=== PATIENT | female | born 1995 | race Caucasian/White ===

== ENCOUNTER 2020-11-22 08:41 | Emergency (ER) | payer OTHER, SELFPAY ==
--- NOTE | ~2020-11-22 | CT_ITS ---
EXAMINATION: CT ABDOMEN AND PELVIS WITHOUT CONTRAST CLINICAL INFORMATION: Right lower quadrant/superior pubic pain COMPARISON: Previous pelvic ultrasound from earlier the same day TECHNIQUE: Multidetector volumetric imaging was performed from the superior aspect of the liver through the pubic symphysis. Sagittal and coronal reformatted images were obtained on the technologist's workstation. This CT examination was performed using dose optimization techniques as appropriate, variously including the following: *Automated exposure control *Adjustment of mA and/or kV according to patient size (this includes techniques or standardized protocols for targeted exams where dose is matched to indication/reason for exam; i.e. extremities or head) *Use of iterative reconstruction technique DLP: 432 mGy-cm FINDINGS: LUNG BASES: The visualized lung bases are unremarkable. LIVER, GALLBLADDER, AND BILIARY TREE: The liver is normal in size, shape, and attenuation. No focal hepatic lesion or biliary ductal dilatation is present. The gallbladder is unremarkable with no evidence of radiopaque gallstones, gallbladder wall thickening, or obvious pericholecystic inflammatory changes. PANCREAS: Unremarkable. SPLEEN: Unremarkable. ADRENAL GLANDS: Unremarkable. KIDNEYS AND URETERS: The kidneys are normal in size, shape, and attenuation. No hydronephrosis, hydroureter, or calculi seen. No perinephric stranding. BLADDER: Unremarkable. GASTROINTESTINAL TRACT: The small and large bowel are unremarkable. The appendix is unremarkable. ABDOMINAL WALL: No significant hernia is appreciated. LYMPH NODES: Normal. VASCULAR: Unremarkable. PELVIC VISCERA: Unremarkable. OSSEOUS STRUCTURES: There is a thoracolumbar scoliosis. CT/CT abdomen pelvis wo con IMPRESSION: Unremarkable exam.
--- NOTE | ~2020-11-22 | US_ITS ---
EXAMINATION: ULTRASOUND PELVIS OVARIAN DOPPLER. CLINICAL INFORMATION: Suprapubic pain. Rule out torsion COMPARISON: None TECHNIQUE: Transabdominal and transvaginal ultrasound of pelvis is performed. In addition pelvic Doppler was performed FINDINGS: The uterus is retroverted and retroflexed measuring 7.9 cm in length, 3.4 cm in AP and 4.4 cm in transverse dimension. It is homogeneous echotexture. The endometrial thickening measures 1.6 cm. There is trace fluid in the cervix. Right ovary measures 2.8 x 1.4 x 1.8 cm and volume 3.6 mL. There is multiple small follicles visualized. Left ovary measures 2.9 x 2.1 x 1.6 cm and volume 5.1 mL. There is anechoic corpus luteal cyst measuring 1.7 x 1.5 x 1.2 cm. There is no free fluid in cul-de-sac. On Doppler exam there is normal arterial and venous flow seen to both ovaries. US/US transvaginal IMPRESSION: Unremarkable uterus. Unremarkable ovaries except for small follicles in the right ovary and corpus luteal cyst left ovary. Normal arterial and venous Doppler study of the ovaries.
--- NOTE | ~2020-11-22 | US_ITS ---
EXAMINATION: ULTRASOUND PELVIS OVARIAN DOPPLER. CLINICAL INFORMATION: Suprapubic pain. Rule out torsion COMPARISON: None TECHNIQUE: Transabdominal and transvaginal ultrasound of pelvis is performed. In addition pelvic Doppler was performed FINDINGS: The uterus is retroverted and retroflexed measuring 7.9 cm in length, 3.4 cm in AP and 4.4 cm in transverse dimension. It is homogeneous echotexture. The endometrial thickening measures 1.6 cm. There is trace fluid in the cervix. Right ovary measures 2.8 x 1.4 x 1.8 cm and volume 3.6 mL. There is multiple small follicles visualized. Left ovary measures 2.9 x 2.1 x 1.6 cm and volume 5.1 mL. There is anechoic corpus luteal cyst measuring 1.7 x 1.5 x 1.2 cm. There is no free fluid in cul-de-sac. On Doppler exam there is normal arterial and venous flow seen to both ovaries. US/US pelvic ovarian doppler IMPRESSION: Unremarkable uterus. Unremarkable ovaries except for small follicles in the right ovary and corpus luteal cyst left ovary. Normal arterial and venous Doppler study of the ovaries.
--- NOTE | ~2020-11-22 | US_ITS ---
EXAMINATION: ULTRASOUND PELVIS OVARIAN DOPPLER. CLINICAL INFORMATION: Suprapubic pain. Rule out torsion COMPARISON: None TECHNIQUE: Transabdominal and transvaginal ultrasound of pelvis is performed. In addition pelvic Doppler was performed FINDINGS: The uterus is retroverted and retroflexed measuring 7.9 cm in length, 3.4 cm in AP and 4.4 cm in transverse dimension. It is homogeneous echotexture. The endometrial thickening measures 1.6 cm. There is trace fluid in the cervix. Right ovary measures 2.8 x 1.4 x 1.8 cm and volume 3.6 mL. There is multiple small follicles visualized. Left ovary measures 2.9 x 2.1 x 1.6 cm and volume 5.1 mL. There is anechoic corpus luteal cyst measuring 1.7 x 1.5 x 1.2 cm. There is no free fluid in cul-de-sac. On Doppler exam there is normal arterial and venous flow seen to both ovaries. US/US pelvic complete IMPRESSION: Unremarkable uterus. Unremarkable ovaries except for small follicles in the right ovary and corpus luteal cyst left ovary. Normal arterial and venous Doppler study of the ovaries.
[2020-11-22 08:51] VITALS: BP 121/70; PULSE 90; RESP 16; TEMP 36.8; O2SAT 98; BMI 23.0
--- NOTE | 2020-11-22 09:07 | ED_ITS ---
HPI - Abdominal Pain General Chief Complaint: Abdominal Pain Stated Complaint: ABD PAIN Time Seen by Provider: 11/22/20 08:59 Source: patient Mode of arrival: ambulatory History of Present Illness HPI narrative: 25-year-old female with a past medical history of asthma presenting to the ED complaining of lower abdominal pain/cramping since this morning with associated nausea. Reports pain radiates to back. Denies fever, chills, vomiting, diarrhea, dysuria/hematuria, vaginal bleeding, vaginal discharge. LMP last week. MD elicited complaint: abdominal pain Related Data Previous Rx's Medication Instructions Recorded ondansetron HCl [Zofran] 4 mg PO Q8H PRN #10 tab 11/22/20 Allergies Allergy/AdvReac Type Severity Reaction Status Date / Time doxycycline [DOXYCYCLINE] Allergy Unknown ANGIOEDEMA Verified 11/22/20 09:21 Review of Systems Review of Systems Constitutional: No Fever, No Chills Cardiovascular: No Chest Pain, No SOB Gastrointestinal: + Nausea, No Vomiting, No Diarrhea, No Constipation, + Abdominal pain Genitourinary: No irregular bleeding, No Dysuria, No Urinary Frequency, No Hematuria, No Flank Pain, No Urinary Flow Changes, No Hesitancy Musculoskeletal: No joint pain, No Myalgias, No Joint Swelling Skin: No Skin Lesions, No rash Yes all other systems are reviewed and are negative Physical Exam Vital Signs: Vital Signs: Last Vital Signs Temp 99.4 F 11/22/20 13:25 Pulse 92 11/22/20 13:25 Resp 16 11/22/20 13:25 BP 113/59 L 11/22/20 13:25 Pulse Ox 99 11/22/20 13:25 Body Mass Index 23.0 Const: General: cooperative, healthy appearing, comfortable and no acute distress Orientation/consciousness: patient oriented x3 Limitations: no limitations HENMT: Head: Yes normal to inspection Ears: hearing grossly normal bilater ally General nose exam: Normal external nose present Face and sinus: Yes normal facial exam Eyes: General: appearance normal, both eyes and all related structures EOM: EOMs intact bilaterally Neck: Neck: Yes normal visual inspection Resp: Effort & Inspection: normal respiratory effort Cardio: Rate: regular rate GI: Inspection: Yes normal to inspection Palpation (GI): Soft to palpation, Tenderness to palpation present (GI) suprapubicly (Greater on the right), no guarding and not rigid : General: Yes no CVA tenderness Back/Spine/Pelvis: Back: no CVA tenderness Skin: Rashes: no rashes Wounds: no wounds Neuro: General: patient oriented x3 Gait exam (Neuro): Normal gait present Extrem: General: Yes normal to inspection Course Course Course Narrative: -labs unremarkable. UA with blood (chronically), urine negative US pelvic complete IMPRESSION: Unremarkable uterus. Unremarkable ovaries except for small follicles in the right ovary and corpus luteal cyst left ovary. Normal arterial and venous Doppler study of the ovaries -1118--on re-evaluation patient reports mild symptomatic improvement however still very tender are on exam. Will obtain CT for further evaluation Patient unable to obtain CT scan with contrast due to anaphylaxis from a shellfish CT abdomen pelvis wo con IMPRESSION: Unremarkable exam. > results discussed with patient including worrisome signs and symptoms and very strict return precautions. She reports she has follow-up with her OBGYN next week. She was given printed copy of pelvic ultrasound results. She verbalized understanding and feels safe for discharge home MDM - Abdominal Pain MDM Narrative Medical decision making narrative: 25-year-old female with a past medical history of asthma presenting to the ED complaining of lower abdominal pain/cramping since this morning with associated nausea. On exam VSS, NAD/well- appearing, abdomen soft with suprapubic TTP >R, no rebound or guarding, no CVAT. Concern for ovarian cyst/torsion vs appendicitis vs ?TOA vs UTI. Lower concern for renal stone/pyelo/diverticulitis/cholecystitis/pancreatitis Plan: Labs, UA, CT AP, IVF, symptomatic treatment, reassess Medical Records Attestation: I reviewed the patient's medical records. Lab Data Attestation: I reviewed the patient's lab results. Result diagrams: 11/22/20 09:19 11/22/20 09:19 Labs: Lab Results 11/22/20 11/22/20 11/22/20 Range/Units 09:19 09:19 09:19 WBC 7.6 (4.8-10.8) X10*3/uL RBC 4.55 (4.20-5.50) X10*6/uL Hgb 12.6 (12.0-16.0) g/dl Hct 41.3 (37-47) % MCV 90.8 (80-98) fL MCH 27.7 (27.0-33.0) pg MCHC 30.5 L (31.0-35.0) g/dl RDW 13.6 (11.0-16.0) % Plt Count 288 (160-400) X10*3/uL MPV 10.0 (9.4-12.3) fL Immature Gran % (Auto) 0.1 (0.0-0.4) % Neut % (Auto) 65.4 (45-73) % Lymph % (Auto) 25.6 (20-40) % [place] % (Auto) 7.4 (2-11) % Eos % (Auto) 1.1 (0-4) % Baso % (Auto) 0.4 (0-2) % Lymph # (Auto) 1.9 (1.2-4.9) X10*3/uL [place] # (Auto) 0.6 (0.1-1.2) X10*3/uL Eos # (Auto) 0.1 (0.0-0.4) X10*3/uL Baso # (Auto) 0.0 (0.0-0.2) X10*3/uL Abs Immat Gran (auto) 0.01 (0.00-0.03) X10*3/uL Absolute Neuts (auto) 4.9 (2.0-8.3) X10*3/uL Absolute Nucleated RBC 0.000 (0.0-0.012) X10*3/uL Nucleated RBC % (auto) 0.0 (0.0-0.2) /100WBC Hold Blue Top SEE NOTE Sodium 142 (135-145) mmol/L Potassium 3.6 (3.3-5.1) mmol/L Chloride 103 (96-108) mmol/L Carbon Dioxide 30 H (22-29) mmol/L Anion Gap 13 (12-20) BUN 16 (9-16) mg/dL Creatinine 0.70 (0.5-1.4) mg/dL Estim Creat Clear Calc 100.7 Estimated GFR > 60 Random Glucose 108 (60-115) mg/dL Calcium 9.4 (8.4-10.2) mg/dL Magnesium 2.2 (1.6-2.6) mg/dL Total Bilirubin 0.9 (0.0-1.0) mg/dL Direct Bilirubin 0.3 (0.0-0.5) mg/dL AST 14 (5-31) U/L ALT 7 (0-31) U/L Alkaline Phosphatase 65 (39-117) U/L Total Protein 7.9 (6.5-8.0) g/dL Albumin 4.5 (3.5-5.0) g/dL Lipase 15 (8-78) U/L Urine Color Urine Appearance Urine pH (5.0-8.0) Ur Specific [place] (1.005-1.025) Urine Protein (NEG-TRACE) MG/DL Urine Glucose (UA) (NEG) MG/DL Urine Ketones (NEG) MG/DL Urine Blood (NEG) Urine Nitrite (NEG) Ur Leukocyte Esterase (NEG) Urine RBC (0) /HPF Urine WBC (0-4) /HPF Ur Squamous Epith Cells /LPF Urine Bacteria /LPF Urine Mucus /LPF Urine Test (NEGATIVE) 11/22/20 11/22/20 Range/Units 09:20 09:20 WBC (4.8-10.8) X10*3/uL RBC (4.20-5.50) X10*6/uL Hgb (12.0-16.0) g/dl Hct (37-47) % MCV (80-98) fL MCH (27.0-33.0) pg MCHC (31.0-35.0) g/dl RDW (11.0-16.0) % Plt Count (160-400) X10*3/uL MPV (9.4-12.3) fL Immature Gran % (Auto) (0.0-0.4) % Neut % (Auto) (45-73) % Lymph % (Auto) (20-40) % [place] % (Auto) (2-11) % Eos % (Auto) (0-4) % Baso % (Auto) (0-2) % Lymph # (Auto) (1.2-4.9) X10*3/uL [place] # (Auto) (0.1-1.2) X10*3/uL Eos # (Auto) (0.0-0.4) X10*3/uL Baso # (Auto) (0.0-0.2) X10*3/uL Abs Immat Gran (auto) (0.00-0.03) X10*3/uL Absolute Neuts (auto) (2.0-8.3) X10*3/uL Absolute Nucleated RBC (0.0-0.012) X10*3/uL Nucleated RBC % (auto) (0.0-0.2) /100WBC Hold Blue Top Sodium (135-145) mmol/L Potassium (3.3-5.1) mmol/L Chloride (96-108) mmol/L Carbon Dioxide (22-29) mmol/L Anion Gap (12-20) BUN (9-16) mg/dL Creatinine (0.5-1.4) mg/dL Estim Creat Clear Calc Estimated GFR Random Glucose (60-115) mg/dL Calcium (8.4-10.2) mg/dL Magnesium (1.6-2.6) mg/dL Total Bilirubin (0.0-1.0) mg/dL Direct Bilirubin (0.0-0.5) mg/dL AST (5-31) U/L ALT (0-31) U/L Alkaline Phosphatase (39-117) U/L Total Protein (6.5-8.0) g/dL Albumin (3.5-5.0) g/dL Lipase (8-78) U/L Urine Color YELLOW Urine Appearance HAZY Urine pH 6.5 (5.0-8.0) Ur Specific [place] 1.020 (1.005-1.025) Urine Protein NEG (NEG-TRACE) MG/DL Urine Glucose (UA) NEG (NEG) MG/DL Urine Ketones NEG (NEG) MG/DL Urine Blood 1+ H (NEG) Urine Nitrite NEG (NEG) Ur Leukocyte Esterase NEG (NEG) Urine RBC 10-14 H (0) /HPF Urine WBC 0-2 (0-4) /HPF Ur Squamous Epith Cells 1+ /LPF Urine Bacteria 2+ /LPF Urine Mucus 2+ /LPF Urine Test NEGATIVE (NEGATIVE) Discharge Plan Discharge Clinical Impression: Lower abdominal pain Patient Disposition: Home, Self-Care Instructions: Abdominal Pain (ED) Additional Instructions: Blood work was reassuring today in the ED Your ultrasound showed some small follicles in her right ovary and a small cyst in her left ovary A CT scan of her abdomen/pelvis was unremarkable It is important that you keep your follow-up with her OBGYN next week, also follow-up with her primary care doctor Julian as an antinausea medication, take as needed for nausea/vomiting If her pain persists or worsens, changes, you develop any persistent nausea/vomiting, vaginal bleeding, vaginal discharge, or unable to eat or drink return to the ED immediately Prescriptions: New ondansetron HCl [Zofran] 4 mg tablet 4 mg PO Q8H PRN (Reason: nausea and vomiting) Qty: 10 RF: 0 Referrals: Hanna Monsalve MD [Primary Care Provider] - 3 days Carmen Lopes MD [Physician] - 5 days [facility] Past Medical History Attestation statement: The following information was validated with the patient. Medical History (Updated 11/22/20 @ 14:35 by MIRIAM Patrick) Asthma Social History Social History Alcohol intake: never Smoking Status: Never smoker Use of substances other than those prescribed or required for medical reasons: No Advance Directives: Yes Advance Directives Information Provided: Yes Advance Directives on File: No
[2020-11-22 09:26] LABS: MANUAL DIFF FLAG NO
[2020-11-22 09:29] LABS: Basophils Percent Auto 0.4 % (0-2); Eosinophils Absolute Auto 0.1 X10*3/uL (0.0-0.4); Eosinophils Percent Auto 1.1 % (0-4); Hematocrit 41.3 % (37-47); Hemoglobin 12.6 g/dl (12.0-16.0); Imm Gran Abs Auto 0.01 X10*3/uL (0.00-0.03); Imm Gran Pct Auto 0.1 % (0.0-0.4); Lymphocytes Absolute Auto 1.9 X10*3/uL (1.2-4.9); Lymphocytes Percent Auto 25.6 % (20-40); Mean Corpuscular HGB Conc 30.5 g/dl (31.0-35.0); Mean Corpuscular Hemoglobin 27.7 pg (27.0-33.0); Mean Corpuscular Volume 90.8 fL (80-98); Monocytes Absolute Auto 0.6 X10*3/uL (0.1-1.2); Monocytes Percent Auto 7.4 % (2-11); Neutrophils Absolute Auto 4.9 X10*3/uL (2.0-8.3); Neutrophils Percent Auto 65.4 % (45-73); Platelet Count 288 X10*3/uL (160-400); Red Blood Count 4.55 X10*6/uL (4.20-5.50); Red Cell Distribution Width 13.6 % (11.0-16.0); White Blood Count 7.6 X10*3/uL (4.8-10.8)
[2020-11-22] MEDS: 0.9 % Sodium Chloride 1,000 ML 999 ML IVCONT (09:29)
[2020-11-22 09:34] LABS: Appearance Urine HAZY; Color Urine YELLOW; Glucose Urine UA NEG (NEG); Leukocyte Esterase Urine NEG (NEG); Nitrite Urine NEG (NEG); PH 6.5 (5.0-8.0); Urine Blood 1+ (NEG); Urine Ketones NEG (NEG); Urine Protein NEG (NEG-TRACE)
[2020-11-22 09:41] LABS: UPreg QC Valid YES; Urine Pregnancy NEGATIVE (NEGATIVE)
[2020-11-22] MEDS: Ketorolac Tromethamine 15 MG/ML VIAL IVPUSH (09:45)
[2020-11-22 09:47] LABS: Bacteria Urine 2+ /LPF; Mucus Urine 2+ /LPF; Squamous Epithelial Cell Urine 1+ /LPF; WBC Urine 0-2 /HPF (0-4)
--- NOTE | 2020-11-22 09:50 | PC.NURSE ---
pt off to ultrasound via w/c.
[2020-11-22 09:55] LABS: Alanine Aminotransferase 7 U/L (0-31); Albumin Level 4.5 g/dL (3.5-5.0); Alkaline Phosphatase 65 U/L (39-117); Anion Gap 13 (12-20); Aspartate Amino Transferase 14 U/L (5-31); Bilirubin Direct 0.3 mg/dL (0.0-0.5); Bilirubin Total 0.9 mg/dL (0.0-1.0); Blood Urea Nitrogen 16 mg/dL (9-16); Calcium 9.4 mg/dL (8.4-10.2); Carbon Dioxide 30 mmol/L (22-29); Chloride 103 mmol/L (96-108); Creatinine Clr Calc Pharmacy 100.7; Estimated Glomerular Filt Rate > 60; Glucose Random 108 mg/dL (60-115); Lipase 15 U/L (8-78); Magnesium 2.2 mg/dL (1.6-2.6); Potassium 3.6 mmol/L (3.3-5.1); Sodium 142 mmol/L (135-145); Total Protein 7.9 g/dL (6.5-8.0)
[2020-11-22 10:57] VITALS: BP 106/70; PULSE 82; RESP 16; TEMP 36.9; O2SAT 98
[2020-11-22 13:25] VITALS: BP 113/59; PULSE 92; RESP 16; TEMP 37.4; O2SAT 99
== END 2020-11-22 15:07 | disposition home or self-care (01) ==
PROVIDERS: Physician Assistant; Emergency Provider Emergency Medicine; PCP Internal Medicine
DX: R10.30 Lower abdominal pain, unspecified (principal); R10.2 Pelvic and perineal pain; Z79.899 Other long term (current) drug therapy
CPT/HCPCS: 36415; 74176; 76830; 76856; 80048; 80076; 81001; 81025; 83690; 83735; 85025; 93975; 96365; 96375; 99284; J1885

== ENCOUNTER → 2022-04-05 13:59 | Outpatient (BNVA) | payer OTHER, SELFPAY | PROVIDERS: PCP Internal Medicine | DX: Z13.89 Encounter for screening for other disorder (principal) | CPT/HCPCS: 99211 ==

== ENCOUNTER 2022-07-04 14:15 | Outpatient (REF) | payer OTHER, SELFPAY ==
[2022-07-04 18:41] LABS: CT PCR NOT DETECTED (Not Detect.); NG PCR NOT DETECTED (Not Detect.)
[2022-07-05 12:16] LABS: BV Int Neg Control Negative (Negative); BV Int Pos Control Positive (Positive)
== END 2022-07-04 14:16 | disposition home or self-care (01) ==
LOC: HO.LNP 14:15
PROVIDERS: Visit Provider Advanced Practice Midwife
DX: Z01.419 Encounter for gynecological examination (general) (routine) without abnormal findings (principal); N94.6 Dysmenorrhea, unspecified; Z20.2 Contact with and (suspected) exposure to infections with a predominantly sexual mode of transmission
CPT/HCPCS: 87480; 87491; 87510; 87591; 87660; 88142

== ENCOUNTER 2022-10-31 06:28 | Emergency (ER) | payer OTHER, SELFPAY ==
[2022-10-31 06:46] VITALS: BP 119/72; PULSE 103; RESP 20; TEMP 37.1; O2SAT 97; BMI 25.7
[2022-10-31 06:56] VITALS: BP 118/78; PULSE 98; RESP 16; O2SAT 98
--- NOTE | 2022-10-31 07:06 | ED.ABDPAIN ---
HPI - Abdominal Pain General Chief Complaint: Abdominal Pain Stated Complaint: Abd pain/Vomiting Time Seen by Provider: 10/31/22 07:00 Source: patient Mode of arrival: ambulatory Limitations: no limitations History of Present Illness HPI narrative: 26-year-old female came in for evaluation of abdominal pain to. Patient woke up this morning with diffuse abdominal cramps associated with nonbloody watery diarrhea multiple times and vomiting. Pain is diffuse to the whole stomach described as moderate 5/10, no fever, no chills, no recent travel, no bad food, no sick exposure. No dysuria, no frequency urination, patient stated she is not . Related Data Previous Rx's Medication Instructions Recorded vitamin with calcium 1 tab PO DAILY #30 tabs 07/04/22 no.72-iron 27 mg-folic acid 1 mg tablet ( Vitamins Plus Low Iron) Allergies Allergy/AdvReac Type Severity Reaction Status Date / Time doxycycline [DOXYCYCLINE] Allergy Unknown ANGIOEDEMA Verified 10/31/22 06:49 shellfish derived Allergy Unknown Unknown Verified 10/31/22 06:49 Review of Systems Review of Systems All other systems are reviewed and are negative Constitutional: Reports as per HPI and Reports no additional constitutional complaints Eyes: Reports as per HPI and Reports no additional eye complaints Reports system reviewed and no additional complaints, except as documented Cardiovascular: Reports as per HPI and Reports no additional cardiovascular complaints Respiratory: Reports as per HPI and Reports no additional respiratory complaints Gastrointestinal: Reports as per HPI and Reports no additional gastrointestinal complaints Genitourinary: Reports no additional female genitourinary complaints Musculoskeletal: Reports no additional musculoskeletal complaints Skin/Breast: Reports system reviewed and no additional complaints, except as docu Psychiatric: Reports no additional psychiatric complaints Endocrine: Reports no additional endocrine complaints Hematologic/Lymphatic: Reports no additional hematologic/lymphatic complaints Allergic/Immunologic: Reports no additional allergic/immunologic complaints Reports system reviewed and no additional complaints, except as documented and Reports Abnormal speech present [facility] Past Medical History Medical History Asthma Scoliosis Family History Family History Maternal Aunt History of breast cancer Social History Social History Alcohol intake: never Patient Tobacco Use Status: Never used Tobacco Smoked in Last 30 Days: No Use of substances other than those prescribed or required for medical reasons: No Advance Directives: No Advance Directives Information Provided: No Sexual orientation: Lesbian/[place]/Homosexual Gender identity: Female Physical Exam ED Vital Signs: Vital Signs - 24 hr 10/31/22 06:46 10/31/22 06:56 10/31/22 09:46 Temperature 98.8 F Pulse Rate 103 H 98 77 Respiratory Rate 20 16 16 Blood Pressure 119/72 118/78 95/61 Pulse Oximetry 97 98 97 Oxygen Delivery Method Room Air Room Air Room Air BMI result Body Mass Index 25.7 Vital signs have been reviewed as appeared to be correct. Blood pressure normal. Heart rate normal. Respiration rate normal. Temperature normal. Oxygen saturation normal. Appearance: Alert. Oriented X3. No acute distress. Head: Normal external exam. Normocephalic. Atraumatic. No Vasquez signs noted. No raccoon eyes noted Eyes: PERRLA. EOMI. Conjunctiva and sclera normal. Eyelids normal. ENT: TM's Normal. Pharynx normal. Uvula midline. Moist mucous membranes. No trismus noted. No drooling noted. No muffled voice noted. Neck: Normal inspection. Neck supple. FROM. No adenopathy. Thyroid Normal. No meningeal signs. No neck mass noted. CVS: Normal heart rate and rhythm. Heart sound normal. No murmurs noted. Pulses normal throughout. Respiratory: No respiratory distress. Painless inspiration. Breath sounds normal. No wheezes/rales/rhonchi noted. Chest nontender. No accessory muscle usage noted or decreased air movement noted. Abdomen: Soft, diffuse tenderness, no rebound, no guarding.. Bowel sounds normal in all 4 quadrants. No distention noted. No organomegaly noted. No visible injury noted. Back: No CVA tenderness. Full range of motion noted. Skin: Skin warm and dry. Normal skin color. Normal skin turgor. No rashes/lesions/lacerations noted. Extremities: No lower extremity edema. Extremities exhibit normal range of motion. Extremities nontender. Neuro: Oriented X 3. Cranial nerve exam: II-XII are grossly intact No motor deficit. No sensory deficit. Reflexes normal. Course Course Course Narrative: 26-year-old female came in for evaluation of nausea and vomiting and diarrhea, physical exam and history is consistent with viral gastroenteritis, patient feels better after IV hydration nausea and vomiting medication, able to tolerate p.o. intake, mild non bloody watery diarrhea is still persist. Medical Decision Making Differential Diagnosis Differential Diagnoses: The differential diagnosis associated with the presentation includes (Gastroenteritis, food poisoning, electrolyte disturbance, dehydration. It) Lab Data MDM Lab Attestation statement: I reviewed the patient's lab results. 10/31/22 07:13 10/31/22 07:13 Labs: Lab Results 10/31/22 10/31/22 10/31/22 Range/Units 07:13 07:13 08:55 WBC 11.0 H (4.8-10.8) X10*3/uL RBC 4.59 (4.20-5.50) X10*6/uL Hgb 12.1 (12.0-16.0) g/dl Hct 39.1 (37.0-47.0) % MCV 85.2 (80.0-98.0) fL MCH 26.4 L (27.0-33.0) pg MCHC 30.9 L (31.0-35.0) g/dl RDW 14.6 (11.0-16.0) % Plt Count 275 (160-400) X10*3/uL MPV 9.9 (9.4-12.3) fL Immature Gran % (Auto) 0.3 (0.0-0.4) % Neut % (Auto) 86.9 H (45-73) % Lymph % (Auto) 8.2 L (20-40) % [place] % (Auto) 4.1 (2-11) % Eos % (Auto) 0.2 (0-4) % Baso % (Auto) 0.3 (0-2) % Lymph # (Auto) 0.9 L (1.2-4.9) X10*3/uL [place] # (Auto) 0.5 (0.1-1.2) X10*3/uL Eos # (Auto) 0.0 (0.0-0.4) X10*3/uL Baso # (Auto) 0.0 (0.0-0.2) X10*3/uL Abs Immat Gran (auto) 0.03 (0.00-0.03) X10*3/uL Absolute Neuts (auto) 9.5 H (2.0-8.3) x10*3/uL Absolute Nucleated RBC 0.000 (0.0-0.012) X10*3/uL Nucleated RBC % (auto) 0.0 (0.0-0.2) /100WBC Sodium 141 (135-145) mmol/L Potassium 3.9 (3.3-5.1) mmol/L Chloride 108 (96-108) mmol/L Carbon Dioxide 24 (22-29) mmol/L Anion Gap 13 (12-20) BUN 18 H (9-16) mg/dL Creatinine 0.68 (0.5-1.4) mg/dL Estim Creat Clear Calc 113.2 Estimated GFR > 60 Random Glucose 111 (60-115) mg/dL Calcium 9.3 (8.4-10.2) mg/dL Total Bilirubin 1.0 (0.0-1.0) mg/dL Direct Bilirubin 0.3 (0.0-0.5) mg/dL AST 14 (5-31) U/L ALT 9 (0-31) U/L Alkaline Phosphatase 60 (39-117) U/L Total Protein 7.7 (6.5-8.0) g/dL Albumin 4.3 (3.5-5.0) g/dL Lipase 13 (8-78) U/L Urine Color Yellow Urine Appearance Hazy Urine pH 6.0 (5.0-9.0) Ur Specific [place] 1.025 (1.005-1.025) Urine Protein Negative (Neg-Trace) mg/dL Urine Glucose (UA) Negative (Negative) mg/dL Urine Ketones Negative (Negative) mg/dL Urine Blood Moderate (2+) H (Negative) Urine Nitrite Negative (Negative) Ur Leukocyte Esterase Negative (Negative) Urine RBC 3-5 H (0-2) /HPF Urine WBC 0-5 (0-5) /HPF Ur Squamous Epith Cells 3-5 (0-2) /HPF Other Crystals Present Urine Bacteria None Seen (None Seen) Hyaline Casts 0-2 (0-2) /LPF Urine Test (NEGATIVE) 10/31/22 Range/Units 08:56 WBC (4.8-10.8) X10*3/uL RBC (4.20-5.50) X10*6/uL Hgb (12.0-16.0) g/dl Hct (37.0-47.0) % MCV (80.0-98.0) fL MCH (27.0-33.0) pg MCHC (31.0-35.0) g/dl RDW (11.0-16.0) % Plt Count (160-400) X10*3/uL MPV (9.4-12.3) fL Immature Gran % (Auto) (0.0-0.4) % Neut % (Auto) (45-73) % Lymph % (Auto) (20-40) % [place] % (Auto) (2-11) % Eos % (Auto) (0-4) % Baso % (Auto) (0-2) % Lymph # (Auto) (1.2-4.9) X10*3/uL [place] # (Auto) (0.1-1.2) X10*3/uL Eos # (Auto) (0.0-0.4) X10*3/uL Baso # (Auto) (0.0-0.2) X10*3/uL Abs Immat Gran (auto) (0.00-0.03) X10*3/uL Absolute Neuts (auto) (2.0-8.3) x10*3/uL Absolute Nucleated RBC (0.0-0.012) X10*3/uL Nucleated RBC % (auto) (0.0-0.2) /100WBC Sodium (135-145) mmol/L Potassium (3.3-5.1) mmol/L Chloride (96-108) mmol/L Carbon Dioxide (22-29) mmol/L Anion Gap (12-20) BUN (9-16) mg/dL Creatinine (0.5-1.4) mg/dL Estim Creat Clear Calc Estimated GFR Random Glucose (60-115) mg/dL Calcium (8.4-10.2) mg/dL Total Bilirubin (0.0-1.0) mg/dL Direct Bilirubin (0.0-0.5) mg/dL AST (5-31) U/L ALT (0-31) U/L Alkaline Phosphatase (39-117) U/L Total Protein (6.5-8.0) g/dL Albumin (3.5-5.0) g/dL Lipase (8-78) U/L Urine Color Urine Appearance Urine pH (5.0-9.0) Ur Specific [place] (1.005-1.025) Urine Protein (Neg-Trace) mg/dL Urine Glucose (UA) (Negative) mg/dL Urine Ketones (Negative) mg/dL Urine Blood (Negative) Urine Nitrite (Negative) Ur Leukocyte Esterase (Negative) Urine RBC (0-2) /HPF Urine WBC (0-5) /HPF Ur Squamous Epith Cells (0-2) /HPF Other Crystals Urine Bacteria (None Seen) Hyaline Casts (0-2) /LPF Urine Test NEGATIVE (NEGATIVE) Medications Administered Discontinued Medications Generic Name Dose Route Start Last Admin Trade Name Freq PRN Reason Stop Dose Admin Sodium Chloride 1,000 mls @ 999 mls/hr 10/31/22 07:04 10/31/22 08:31 Ns IV 10/31/22 08:04 Infused .Q1H1M ONE Infusion Loperamide HCl 2 mg 10/31/22 07:04 10/31/22 07:17 Loperamide Hcl 2 Mg Capsule PO 10/31/22 07:05 2 mg ONCE ONE Administration Ondansetron HCl 4 mg 10/31/22 07:04 10/31/22 07:18 Ondansetron Hcl 4 Mg/2 Ml Vial IVPUSH 10/31/22 07:05 4 mg ONCE ONE Administration Discharge Plan Discharge Clinical Impression: Gastroenteritis Patient Disposition: Home, Self-Care Instructions: Gastroenteritis (ED) Prescriptions: No Action Vitamin Plus Low Iron 27 mg iron- 1 mg tablet 1 tab PO DAILY Qty: 30 [id number] Referrals: Hanna Monsalve MD [Primary Care Provider] -
--- NOTE | 2022-10-31 07:06 | PC.NURSE ---
26 y/o F pw sudden onset abdominal pain since early AM. appears very uncomfortable, VSS, placed in gown, on monitor, IV in place, awaiting MD
[2022-10-31] MEDS: Loperamide HCl 2 MG CAPSULE PO (07:17)
[2022-10-31] MEDS: ondansetron HCL 4 MG/2 ML VIAL IVPUSH (07:18)
[2022-10-31] MEDS: 0.9 % Sodium Chloride 1,000 ML 999 ML IV (07:18)
[2022-10-31 07:30] LABS: Basophils Percent Auto 0.3 % (0-2); Eosinophils Percent Auto 0.2 % (0-4); Hematocrit 39.1 % (37.0-47.0); Hemoglobin 12.1 g/dl (12.0-16.0); Imm Gran Abs Auto 0.03 X10*3/uL (0.00-0.03); Imm Gran Pct Auto 0.3 % (0.0-0.4); Lymphocytes Absolute Auto 0.9 X10*3/uL (1.2-4.9); Lymphocytes Percent Auto 8.2 % (20-40); MANUAL DIFF FLAG NO; Mean Corpuscular HGB Conc 30.9 g/dl (31.0-35.0); Mean Corpuscular Hemoglobin 26.4 pg (27.0-33.0); Mean Corpuscular Volume 85.2 fL (80.0-98.0); Mean Platelet Volume 9.9 fL (9.4-12.3); Monocytes Absolute Auto 0.5 X10*3/uL (0.1-1.2); Monocytes Percent Auto 4.1 % (2-11); Neutrophils Absolute Auto 9.5 x10*3/uL (2.0-8.3); Neutrophils Percent Auto 86.9 % (45-73); Platelet Count 275 X10*3/uL (160-400); Red Blood Count 4.59 X10*6/uL (4.20-5.50); Red Cell Distribution Width 14.6 % (11.0-16.0)
[2022-10-31 07:41] LABS: Alanine Aminotransferase 9 U/L (0-31); Albumin Level 4.3 g/dL (3.5-5.0); Alkaline Phosphatase 60 U/L (39-117); Anion Gap 13 (12-20); Aspartate Amino Transferase 14 U/L (5-31); Bilirubin Direct 0.3 mg/dL (0.0-0.5); Blood Urea Nitrogen 18 mg/dL (9-16); Calcium 9.3 mg/dL (8.4-10.2); Carbon Dioxide 24 mmol/L (22-29); Chloride 108 mmol/L (96-108); Creatinine Clr Calc Pharmacy 113.2; Estimated Glomerular Filt Rate > 60; Glucose Random 111 mg/dL (60-115); Lipase 13 U/L (8-78); Potassium 3.9 mmol/L (3.3-5.1); Sodium 141 mmol/L (135-145); Total Protein 7.7 g/dL (6.5-8.0)
[2022-10-31 09:08] LABS: Appearance Urine Hazy; Color Urine Yellow; Glucose Urine UA Negative (Negative); Leukocyte Esterase Urine Negative (Negative); Nitrite Urine Negative (Negative); Specific Gravity - Urine 1.025 (1.005-1.025); UMIC TRIGGER UACC YES; Urine Blood Moderate (2+) (Negative); Urine Ketones Negative (Negative); Urine Protein Negative (Neg-Trace)
[2022-10-31 09:09] LABS: UPreg QC Valid YES; Urine Pregnancy NEGATIVE (NEGATIVE)
[2022-10-31 09:27] LABS: Bacteria Urine None Seen (None Seen); Hyaline Casts Urine 0-2 /LPF (0-2); Other Crystals Urine Present; WBC Urine 0-5 /HPF (0-5)
[2022-10-31 09:46] VITALS: BP 95/61; PULSE 77; RESP 16; O2SAT 97
== END 2022-10-31 10:55 | disposition home or self-care (01) ==
PROVIDERS: Emergency Provider Emergency Medicine; PCP Internal Medicine
DX: K52.9 Noninfective gastroenteritis and colitis, unspecified (principal); Z79.899 Other long term (current) drug therapy
CPT/HCPCS: 36415; 80048; 80076; 81001; 81025; 83690; 85025; 96361; 96374; 99284; J2405

== ENCOUNTER 2025-05-11 10:20 | Outpatient (AMB) | payer OTHER, SELFPAY ==
--- NOTE | 2025-05-11 10:33 | AM.OFFWIN_ITS ---
Intake Vital Signs 05/11/25 10:34 Height 5 ft 3 in Weight 134 lb BMI 23.7 BP 110/70 Blood Pressure Location Lt brachial Position Sitting Pulse 91 Pulse Source Pulse Oximeter Temp 98.9 F Temp Source Oral Pulse Oximetry (%) 99 Oxygen Delivery Method Room Air Intake Visit Reasons: ep possibe sinus infection Intake Note: pt presents with bilateral ear pressure, bilateral eye pressure, sinus pressure, headaches, sore throat, chest congestion/sinus congestion, decrease of taste/smell Patient Tobacco Use Status: Never used Tobacco Allergies doxycycline (DOXYCYCLINE) Allergy (Unknown, Verified 05/11/25 10:36) ANGIOEDEMA shellfish derived Allergy (Unknown, Verified 05/11/25 10:36) Unknown Medication List - Last Reconciled 05/11/25 by Rizwan Benjamin MD No Known Home Meds Do you need a note to return to daycare/school/sports/work: Yes HPI ep possibe sinus infection HPI Details Chief Complaint The patient presents with symptoms including sore throat, loss of taste and smell, and pressure in the ears and eyes, suspecting a sinus infection. History of Present Illness The patient is a 29-year-old female presenting with symptoms indicative of a possible sinus infection. Sinus Infection: - Symptoms began on Saturday with a sore throat. - Progressed with loss of taste and smel l the next day. - Reports feeling pressure behind eyes a nd in ears, accompanied by sensitivity. - Developed a cough on the day of the vi sit. - Experiences pressure headaches. - Has a history of seasonal allergies; s uspected initial symptoms were due to yard work exposure. Possible Asthma Exacerbation: - Reports recent onset of wheezing. - History of asthma, though no recent ep isodes were noted before this incident. Medical History: - Asthma - Previous occurrences of sinus infectio ns Medications: - Zyrtec (taken for presumed allergies a nd sore throat) - NyQuil (taken for relieving cold sympt oms) Social History: - Recent involvement in yard work, indic ating outdoor activity. Problem List - Sinus Infection - Possible Asthma Exacerbation Patient Instructions - Take prescribed antibiotics as directe d. - Use the inhaler as prescribed. - Take a small dose of prednisone if fee ling wheezy. - Ensure COVID testing as it is offered. - Obtain a note for work for the day fol lowing the visit if needed. Review of Systems - General: No fever no chills - Neurological: no dizziness - Ear nose throat: no hearing difficulty no ear pain - Cardiovascular: No syncope, no chest pain, no palpitations - Gastrointestinal: No nausea vomiting or diarrhea Physical Exam General: No acute distress HEENT: Pressure behind eyes, bad pressure in ears, sensitive ears Neck: Supple Respiratory system: Able to talk in full sentences, mild wheezing at the bases Gastrointestinal: No pain Extremities: No new findings BED AND BREAKFAST COOK: Alert awake oriented x3 motor intact Skin: Normal turgor COVID test negative PFSH Medical History Scoliosis Asthma Family History Maternal Aunt History of breast cancer Social History Alcohol intake: never Patient Tobacco Use Status: Never used Tobacco Sexual orientation: Lesbian/[place]/Homosexual Gender identity: Female Physical Exam Vital Signs: Last Vital Signs Temp 98.9 F 05/11/25 10:34 Pulse 91 05/11/25 10:34 BP 110/70 05/11/25 10:34 Pulse Ox 99 05/11/25 10:34 Oxygen Delivery Method Room Air 05/11/25 10:34 BMI result Body Mass Index 23.7 Assessment & Plan Assessment & Plan (1) Sinus congestion: Code(s): R09.81 - Nasal congestion (2) Taste absent: Code(s): R43.2 - Parageusia (3) Smell, impaired: Code(s): R43.8 - Other disturbances of smell and taste Plan Chief Complaint The patient presents with symptoms including sore throat, loss of taste and smell, and pressure in the ears and eyes, suspecting a sinus infection. History of Present Illness The patient is a 29-year-old female presenting with symptoms indicative of a possible sinus infection. Sinus Infection: - Symptoms began on Saturday with a sore throat. - Progressed with loss of taste and smell the next day. - Reports feeling pressure behind eyes and in ears, accompanied by sensitivity. - Developed a cough on the day of the visit. - Experiences pressure headaches. - Has a history of seasonal allergies; suspected initial symptoms were due to yard work exposure. Possible Asthma Exacerbation: - Reports recent onset of wheezing. - History of asthma, though no recent episodes were noted before this incident. Medical History: - Asthma - Previous occurrences of sinus infections Medications: - Zyrtec (taken for presumed allergies and sore throat) - NyQuil (taken for relieving cold symptoms) Social History: - Recent involvement in yard work, indicating outdoor activity. Problem List - Sinus Infection - Possible Asthma Exacerbation Patient Instructions - Take prescribed antibiotics as directed. - Use the inhaler as prescribed. - Take a small dose of prednisone if feeling wheezy. - Ensure COVID testing as it is offered. - Obtain a note for work for the day following the visit if needed. COVID test negative Orders: Orders SARS COV2 IgG Today R09.81 - Nasal congestion, R43.2 - Parageusia, R43.8 - Other disturbances of smell and taste SARS-CoV2/FLU/RSV Today R09.89 - Other specified symptoms and signs involving the circulatory and respiratory systems Medications: New azithromycin Take 2 tablets today then 1 daily 250 mg PO ONCE 6 tabs 0RF 5 days J06.9 - Acute upper respiratory infection, unspecified prednisone 5 mg PO DAILY 3 tabs 0RF 3 days albuterol sulfate 90 mcg/actuation (Ventolin HFA) 1 inh inhalation QID PRN 6.7 grams 0RF shortness of breath or wheezing Coding Level of Care Code Est Pt Level 3 (49706) Diagnoses Sinus congestion R09.81 Taste absent R43.2 Smell, impaired R43.8
[2025-05-11 10:34] VITALS: BP 110/70; PULSE 91; TEMP 37.2; O2SAT 99; BMI 23.7
== END 2025-05-11 11:01 | disposition home or self-care (01) ==
PROVIDERS: PCP Internal Medicine; Visit Provider Internal Medicine
DX: R09.81 Nasal congestion (principal); R43.2 Parageusia; R43.8 Other disturbances of smell and taste

== ENCOUNTER 2025-05-11 10:20 | Outpatient (REF) | payer OTHER, SELFPAY ==
[2025-05-11 15:07] LABS: Resp Syncy Virus RNA Qual PCR NEGATIVE (Negative); SARS COV2 PCR INHOUSE NEGATIVE (Negative)
== END 2025-05-11 10:21 | disposition home or self-care (01) ==
LOC: HO.LNP 10:20
PROVIDERS: PCP Internal Medicine; Visit Provider Internal Medicine
DX: R09.81 Nasal congestion (principal); R43.2 Parageusia; R43.8 Other disturbances of smell and taste; R09.89 Other specified symptoms and signs involving the circulatory and respiratory systems; J06.9 Acute upper respiratory infection, unspecified
CPT/HCPCS: 87637